=== PATIENT | male | born 2000 | race Caucasian/White ===

== ENCOUNTER 2020-04-21 18:52 | Emergency (ER) | payer OTHER ==
--- NOTE | 2020-04-21 19:00 | ER Document Report ---
ED Medical Screen (RME) - General Stated Complaint: TESTICULAR PAIN Time Seen by Provider: 04/21/20 18:54 Notes: Patient presents complaining of dysuria with left testicular tenderness, left lower pelvic and left flank pain. Patient does report penile discharge for the past week and concerns about possible STI. I have greeted and performed a rapid initial assessment of this patient. A comprehensive ED assessment and evaluation of the patient, analysis of test re sults and completion of the medical decision making process will be conducted by additional ED providers. Physical Exam - Back Back: Normal. No: CVA tenderness
[2020-04-21 19:43] LABS: ABSOLUTE LYMPHOCYTES (AUTO) 2.1 10^3/uL (0.5-4.7); ABSOLUTE MONOCYTES (AUTO) 0.7 10^3/uL (0.1-1.4); ABSOLUTE NEUT (AUTO) 9.1 10^3/uL (1.7-8.2); BASOPHILS % (AUTO) 0.2 % (0-2); EOSINOPHILS % (AUTO) 0.2 % (0-6); HEMATOCRIT 38.8 % (37.9-51.0); HEMOGLOBIN 13.6 g/dL (13.5-17.0); LYMPHOCYTES % (AUTO) 17.7 % (13-45); MEAN CORPUSCULAR HEMOGLOBIN 29.7 pg (27.0-33.4); MEAN CORPUSCULAR HGB CONC 34.9 g/dL (32.0-36.0); MEAN CORPUSCULAR VOLUME 85 fl (80-97); MONOCYTES % (AUTO) 5.6 % (3-13); PLATELET COUNT 226 10^3/uL (150-450); RED BLOOD COUNT 4.56 10^6/uL (4.35-5.55); RED CELL DISTRIBUTION WIDTH 13.3 % (11.5-14.0); SEGMENTED NEUTROPHILS % (AUTO) 76.3 % (42-78); TOTAL CELLS COUNTED % (AUTO) 100 %; WHITE BLOOD COUNT 11.9 10^3/uL (4.0-10.5)
[2020-04-21 20:01] LABS: ANION GAP 12 (5-19); BLOOD UREA NITROGEN 11 mg/dL (7-20); CALCIUM 10.3 mg/dL (8.4-10.2); CARBON DIOXIDE 28 mmol/L (22-30); CHLORIDE 99 mmol/L (98-107); GLUCOSE 101 mg/dL (75-110); POTASSIUM 4.3 mmol/L (3.6-5.0)
--- NOTE | 2020-04-21 20:46 | RADIOLOGY REPORT (SQ) ---
EXAM DESCRIPTION: US SCROTUM COMPLETED DATE/TME: 04/21/2020 18:59 CLINICAL HISTORY: 19 years, Male, L testicular pain COMPARISON: None. TECHNIQUE: Axial 2-D grayscale images of the scrotum were acquired. Doppler was utilized. LIMITATIONS: None. FINDINGS: Right testicle measures 4.8 x 2.7 x 3.5 cm in size. It demonstrates normal echogenicity and normal low resistance arterial waveforms. The right epididymal head measures 1.2 x 0.5 x 0.7 cm in size. It appears normal in echogenicity. There is a small right hydrocele. A rounded focus of hyperechogenicity layers dependently within the right hemiscrotum, likely indicating a scrotolith. Left testicle measures 4.6 x 2.6 x 3.2 cm in size. It demonstrates normal echogenicity and normal low resistance arterial waveforms. The left epididymal head measures 1.3 x 1.3 x 1.3 cm in size. However, the left epididymal body and tail are diffusely hyperemic. Epididymal tail also appears somewhat enlarged. A small left epididymal head cyst is noted as well as an epididymal appendage. There is also a small left hydrocele. There is also some degree of scrotal wall thickening about the left hemiscrotum. IMPRESSION: Findings indicate left epididymitis. Superimposed wall thickening about the left hemiscrotum, nonspecific. No other acute intratesticular abnormality. copyright 2010 [employer]- All Rights Reserved
[2020-04-21 20:59] LABS: APPEARANCE,URINE SLIGHTLY-CLOUDY; BILIRUBIN,URINE NEGATIVE (NEGATIVE); COLOR,URINE YELLOW; GLUCOSE, URINE NEGATIVE (NEGATIVE); KETONES,URINE NEGATIVE (NEGATIVE); LEUKOCYTE ESTERASE,URINE LARGE (NEGATIVE); NITRITE,URINE NEGATIVE (NEGATIVE); PROTEIN,URINE 30 mg/dL (NEGATIVE); URINE SPECIFIC GRAVITY 1.025; UROBILINOGEN,URINE NEGATIVE mg/dL (<2.0)
[2020-04-21 21:05] LABS: CHLAM PCR DETECTED (NOT DETECT)
[2020-04-21] MEDS ORDERED: CEFTRIAXONE INJ 250 MG VIAL IM ONE (22:47)
[2020-04-21] MEDS ORDERED: LIDOCAINE 1%/EPINEPHRINE INJ 20 ML VIAL INJ ONE (22:47)
[2020-04-21] MEDS ORDERED: LEVOFLOXACIN 500 MG TABLET PO ONE (22:48)
--- NOTE | 2020-04-21 22:53 | ER Document Report ---
ED General - General Chief Complaint: Testicular Pain Stated Complaint: TESTICULAR PAIN Time Seen by Provider: 04/21/20 18:54 Notes: 19-year-old male with history of genital herpes presents with pain in left testicle gradual onset gradually worsening over the past approximately 2 days associated with penile discharge over the past approximately 1 week. Patient endorses having unprotected sex with new sexual partner in the past few weeks. Patient endorses insertive anal intercourse with men. Patient denies any fever, sores, lesions, unexplained weight loss, cold/flulike symptoms, immune compromise history. - Related Data Allergies/Adverse Reactions: No Known Allergies Allergy (Verified 04/21/20 19:00) Past Medical History - General Information source: Patient - Social History Smoking Status: Never Smoker Chew tobacco use (# tins/day): No Frequency of alcohol use: Social Drug Abuse: None Family History: Reviewed & Not Pertinent Patient has homicidal ideation: No Review of Systems - Review of Systems Notes: REVIEW OF SYSTEMS: CONSTITUTIONAL : Denies fever, chills, or sweats. EENT: Denies recent cold/sinus symptoms, denies throat pain CARDIOVASCULAR: Denies chest pain, MICKY RESPIRATORY: Denies cough, denies shortness of breath. GASTROINTESTINAL: Denies abdominal pain, nausea/vomiting. GENITOURINARY: Denies difficulty urinating, +painful urination. MUSCULOSKELETAL: Denies neck pain, back pain. SKIN: Denies rash or skin lesions. HEMATOLOGIC : Denies easy bruising or bleeding. LYMPHATIC: Denies swollen, enlarged glands. NEUROLOGICAL: Denies headache, denies change in gait. PSYCHIATRIC: Denies anxiety or stress or depression. Physical Exam - Vital signs Vitals: Temp 99.6 F 04/21/20 18:56 - Notes Notes: PHYSICAL EXAMINATION: GENERAL: Well-appearing, well-nourished and in no acute distress. HEAD: Atraumatic, normocephalic. EYES: Pupils equal round and appropriate constriction, sclera anicteric, conjunctiva are normal. ENT: nares patent, moist mucous membranes. NECK: Normal range of motion, supple without lymphadenopathy LUNGS: Normal respiratory rate and effort, speaking in full sentences HEART: Regular rate, no JVD, no lower extremity edema : Normal-appearing testes, bilaterally descended, mild tenderness over e pididymal distribution of left testicle, no sores or lesions, no active penile discharge EXTREMITIES: Normal range of motion, no pitting or edema. No cyanosis. NEUROLOGICAL: Awake, alert, conversing appropriately, moves all extremities spontaneously. PSYCH: Normal mood, normal affect. SKIN: Warm, Dry, normal turgor, no rashes or lesions noted. Exam chaperoned by nurse Solis. Course - Re-evaluation Re-evalutation: 04/21/20 22:52 Patient is incision consistent with epididymitis, no signs of testicular torsion with gradual onset and gradual symptoms, obtained ultrasound consistent with left epididymitis. Patient had GC probe which was positive for both gonorrhea and chlamydia. Informed patient of findings and instructed him to avoid all sexual contact until courses of antibiotics completed. Patient gave verbal consent for HIV testing. No signs of syphilis. Patient otherwise appears very well, was in agreement with plan and will follow up with primary doctor. Had discussion with patient about starting HIV PrEP which she is very interested in and says he will discuss with his primary doctor. Gave patient extensive return to ED precautions which he demonstrate understanding of. Patient ready for jake peraza. - Vital Signs Vital signs: Temp Pulse Resp BP Pulse Ox 98.9 F 77 18 131/71 H 99 04/21/20 23:30 04/21/20 23:30 04/21/20 23:30 04/21/20 23:30 04/21/20 23:30 - Laboratory Result Diagrams: 04/21/20 19:20 04/21/20 19:20 Laboratory results interpreted by me: 04/21/20 04/21/20 04/21/20 19:19 19:19 19:20 WBC 11.9 H Absolute Neuts (auto) 9.1 H Calcium Urine Protein 30 H Urine Blood SMALL H Ur Leukocyte Esterase LARGE H Chlamydia DNA (PCR) DETECTED H N.gonorrhoeae DNA (PCR) DETECTED H 04/21/20 19:20 WBC Absolute Neuts (auto) Calcium 10.3 H Urine Protein Urine Blood Ur Leukocyte Esterase Chlamydia DNA (PCR) N.gonorrhoeae DNA (PCR) Discharge - Discharge Clinical Impression: Epididymitis Disposition: HOME, SELF-CARE Additional Instructions: Levofloxacain You have been given an antibacterial agent, levofloxacin (Levaquin). This medicine is not related to the penicillins, sulfas, cephalosporins, or tetracyclines. It is often given to patients who are allergic to these drugs. It has been chosen for you either because other drugs are not appropriate, or because of the nature of your problem. Levaquin should not be taken with antacids, as these can decrease its effectiveness. It can be taken without regard to meals. LEVAQUIN SHOULD NOT BE TAKEN BY CHILDREN, NURSING WOMEN, OR WOMEN. Although Levaquin is usually well-tolerated, common side effects can include nausea and diarrhea. Contact your doctor if you experience any unusual symptoms while on this medication, such as joint pain or swelling, shortness of breath, wheezing, faintness, or hives. Epididymitis You have epididymitis. This is an inflammation of the organ just behind the testicle, called the epididymis. It can be due to infection in the bladder or prostate. Many cases are simply inflammation and are not caused by germs. Epididymitis often develops after heavy lifting or vigorous exercise. Antibiotics and antiinflammatory medication are often prescribed. Elevation of the scrotum with a jock-strap or tight briefs will help with the pain. Pain medication may be required. Either cold packs or warm sitz baths can help with the pain -- ask your doctor which he recommends for your case. It may take 10 to 14 days until the pain is gone. Avoid heavy lifting during this time. Call the doctor or go to the hospital if you develop fever, increasing pain, or severe swelling, or if you fail to improve as expected. Gonorrhea You have been diagnosed with gonorrhea. In men, this germ infects the urethra (and sometimes the throat). Men usually have drainage from the penis and pain with urination. In women, the germ infects the vagina and fallopian tubes. There may be discharge and pelvic pain. Some women have no symptoms at all. The infection can do permanent damage to the tubes and ovaries. It should be taken very seriously. Treatment is antibiotics. It's important that you receive all recommended medication. Use condoms to prevent spread of the infection. Because this infection is spread sexually, your sexual partner must be checked before resuming sexual relations. If a culture shows gonorrhea germs, it must be reported to the health department. Call the doctor or return at once if you develop increasing fever, rash, joint swelling, severe pelvic pain, vaginal bleeding (other than your period), or problems with your bladder or bowels. Chlamydia You have a chlamydia infection. Chlamydia is a germ that grows inside the cells of the mucous membranes. It often infects the eyes, urethra, and fallopian tubes. It can cause chronic pain and scar tissue if untreated. Antibiotics are used to treat chlamydia. It's important to take all the medicine even if there are no symptoms. Use condoms to prevent spread of the infection. Because this infection can spread by sexual contact, it's important that your sexual partner be checked before resuming sexual relations. A positive test for chlamydia has to be reported to the health department. Call the doctor or return at once if you develop increasing fever, rash, severe pelvic pain, vaginal bleeding (other than your period), or problems with your bladder or bowels. Avoid all sexual contact and you have completed your course of antibiotics. Take all antibiotics as prescribed. Inform your sexual partners of your diagnosis today may also get treated. Return to ED if you have any worsening symptoms. Follow-up with primary doctor within 1 week. Prescriptions: Levofloxacin [Levaquin 500 mg Tablet] 500 mg PO DAILY 9 Days #9 tablet
[2020-04-21 23:33] VITALS: BP 131/71
== END 2020-04-21 23:30 | disposition home or self-care (01) ==
LOC: ER 18:52
DX: N45.1 Epididymitis (principal); N50.812 Left testicular pain
CPT/HCPCS: 99285; 96372; 36415; 85025; 87491 ×2; 80048; 81001; 86701; 87591; 76870; 93976; J3490; J0696